=== PATIENT | male | born 1990 | race Caucasian/White ===

== ENCOUNTER → 2020-07-14 | Outpatient (CLI) | payer OTHER ==
[~2020-07-14] MED LIST: IBUPROFEN800 MG PO; KEFLEX500 MG PO; NORCO 10-325 T1 EACH PO; VITAMIN C500 M1 PO; VITAMIN D10000 UNIT PO
== END ==
LOC: KOH-I 14:05
DX: M25.372 Other instability, left ankle (principal); S93.432A Sprain of tibiofibular ligament of left ankle, initial encounter; Z98.890 Other specified postprocedural states; X58.XXXA Exposure to other specified factors, initial encounter
CPT/HCPCS: 73721

== ENCOUNTER → 2021-02-06 | Outpatient (CLI) | payer OTHER ==
[~2021-02-06] MED LIST changes: +IBUPROFEN200 M1 PO; +VITAMIN D31250 MCG PO
[2021-02-06 11:22] LABS: HEMOGLOBIN 16.2 gm/dl (14.0-17.5); RED BLOOD COUNT 5.02 M/UL (4.20-5.50)
[2021-02-06 11:45] LABS: BUN/CREATININE RATIO 8 (0-10)
== END ==
LOC: OPSV2 09:45
PROVIDERS: Podiatrist Foot & Ankle Surgery
DX: Z01.812 Encounter for preprocedural laboratory examination (principal)
CPT/HCPCS: 36415; 80048; 85027

== ENCOUNTER → 2021-02-08 | Day surgery (SDC) | payer OTHER ==
[~2021-02-08] VITALS: Ht 193 cm; Wt 91.2 kg
== END | disposition home or self-care (01) ==
LOC: OR 07:09
DX: S93.492A Sprain of other ligament of left ankle, initial encounter (principal); M25.372 Other instability, left ankle; M24.672 Ankylosis, left ankle; F41.9 Anxiety disorder, unspecified; F17.210 Nicotine dependence, cigarettes, uncomplicated; Z79.52 Long term (current) use of systemic steroids; Z79.899 Other long term (current) drug therapy
CPT/HCPCS: C1713; J0690; J1100; J1170; J1885; J2250; J2405; J2704; J2795; J3010; J3370; J7120